=== PATIENT | female | born 1965 | race Caucasian/White ===

== ENCOUNTER 2019-08-24 13:58 | Observation (INO) | payer OTHER ==
[2019-08-24] MEDS ORDERED: SODIUM CHLORIDE 0.9% 500 ML 500 ML IV STA (14:47)
--- NOTE | 2019-08-24 14:50 | ED ---
Arrhythmia/Palpitations HPI - General Chief Complaint: Arrhythmia/Palpitations Stated Complaint: palpitations Source: patient Mode of arrival: wheelchair Limitations: no limitations - History of Present Illness Initial Comments: The patient is a 53-year-old female with minimal past medical history presents to emergency room with reported palpitations. The patient feels as if she is dehydrated. States she stayed up late last night and had 4 glasses of wine. She was up all night urinating and had poor sleep. Today she woke up this morning and was having chest palpitations. Denies any chest pain. No ripping or tearing sensation to her back. Denies associated shortness of breath. Denies history of DVT or PE. No pedal edema. No unilateral calf pain or swelling. Does report that she was on Tenormin in the past however has not taken it in several years. She has not seen a physician. She is concerned that her symptoms may be related to new onset menopause. She denies pleuritic chest pain. Denies any abdominal pain, nausea or vomiting. No fevers or chills. Denies cough or hemoptysis. There are no alleviating, precipitating or modifying factors - Related Data Home Medications Medication Instructions Recorded Confirmed Ibuprofen [Advil] 200 mg PO Q8HR PRN 08/24/19 08/24/19 Previous Rx's Medication Instructions Recorded Metoprolol Tartrate [Lopressor] 12.5 mg PO BID #60 tab 08/25/19 Allergies Allergy/AdvReac Type Severity Reaction Status Date / Time No Known Allergies Allergy Verified 08/24/19 14:55 Review of Systems ROS Statement: Those systems with pertinent positive or pertinent negative responses have been documented in the HPI. ROS Other: All systems not noted in ROS Statement are negative. Past Medical History History of Any Multi-Drug Resistant Organisms: None Reported Past Psychological History: No Psychological Hx Reported Smoking Status: Never smoker Past Alcohol Use History: Occasional Past Drug Use History: None Reported General Exam Limitations: no limitations General appearance: alert, in no apparent distress Head exam: Present: atraumatic, normocephalic, normal inspection Eye exam: Present: normal appearance, PERRL, EOMI. Absent: scleral icterus, conjunctival injection, periorbital swelling ENT exam: Present: normal exam, mucous membranes moist Neck exam: Present: normal inspection. Absent: tenderness, meningismus, lymphadenopathy Respiratory exam: Present: normal lung sounds bilaterally. Absent: respiratory distress, wheezes, rales, rhonchi, stridor Cardiovascular Exam: Present: normal rhythm, tachycardia, normal heart sounds. Absent: systolic murmur, diastolic murmur, rubs, gallop, clicks GI/Abdominal exam: Present: soft, normal bowel sounds. Absent: distended, tenderness, guarding, rebound, rigid Extremities exam: Present: normal inspection, full ROM, normal capillary refill. Absent: tenderness, pedal edema, joint swelling, calf tenderness Back exam: Present: normal inspection Neurological exam: Present: alert, oriented X3, CN II-XII intact Psychiatric exam: Present: normal affect, normal mood Skin exam: Present: warm, dry, intact, normal color. Absent: rash Course Vital Signs 08/24/19 08/24/19 08/24/19 14:01 14:21 16:06 Temperature 98.5 F Pulse Rate 96 106 H Pulse Rate [ 90 [employer] ] Respiratory 18 18 Rate Blood Pressure 167/73 149/54 O2 Sat by Pulse 99 96 Oximetry 08/24/19 17:15 Temperature 100.4 F H Pulse Rate 106 H Pulse Rate [ [employer] ] Respiratory 18 Rate Blood Pressure 142/51 O2 Sat by Pulse 98 Oximetry EKG Findings - EKG Comments: EKG Findings:: EKG at 1421 demonstrates a normal sinus rhythm with a ventricular rate of 96. HI interval 130. QRS 80. QTC 424. There are no acute ST segment elevations or depressions concerning for ischemic changes. EKG was performed at 1445 because of identifiable bigeminy on the monitor. Repeat EKG demonstrates a continued sinus rhythm with a ventricular rate of 85. HI interval 134. QRS 76. QTC 411. No acute ST segment elevations or depressions concerning for ischemic changes. No signs of [id number] or Brugada Medical Decision Making - Medical Decision Making Upon arrival the patient is placed into room 11. After history and physical exam was performed. During my physical exam I do note that the patient goes from a sinus rhythm into a bigeminy and trigeminy rhythm. I did recommend laboratory studies and a chest x-ray. Laboratory studies are essentially unremarkable. First troponin is negative. Chest x-ray demonstrates no acute findings. I did discuss the results the patient. She does sit up in bed and attempted to ambulate. Her heart rate does approach 115. As the patient has identifiable trigeminy and bigeminy and is symptomatic I did recommend admission to the hospital for cardio eval and echo. The patient agreed to this. I did call and discuss the case with Dr. Beltran who accepted admission for the patient. The patient was requesting something for increased heart rate. I did give her 1 mg of Ativan and propranolol 10 mg by mouth. The patient remained in stable condition was transported to the floor - Lab Data Result diagrams: 08/25/19 05:49 08/25/19 05:49 Lab Results 08/24/19 08/24/19 08/24/19 Range/Units 14:30 14:30 14:30 WBC 8.5 (3.8-10.6) k/uL RBC 5.08 (3.80-5.40) m/uL Hgb 15.1 (11.4-16.0) gm/dL Hct 44.7 (34.0-46.0) % MCV 88.0 (80.0-100.0) fL MCH 29.6 (25.0-35.0) pg MCHC 33.7 (31.0-37.0) g/dL RDW 12.9 (11.5-15.5) % Plt Count 181 (150-450) k/uL Neutrophils % 78 % Lymphocytes % 9 % Monocytes % 7 % Eosinophils % 3 % Basophils % 1 % Neutrophils # 6.6 (1.3-7.7) k/uL Lymphocytes # 0.8 L (1.0-4.8) k/uL Monocytes # 0.6 (0-1.0) k/uL Eosinophils # 0.3 (0-0.7) k/uL Basophils # 0.1 (0-0.2) k/uL PT 9.5 (9.0-12.0) sec INR 0.9 (<1.2) APTT 24.6 (22.0-30.0) sec Sodium 138 (137-145) mmol/L Potassium 4.1 (3.5-5.1) mmol/L Chloride 102 (98-107) mmol/L Carbon Dioxide 25 (22-30) mmol/L Anion Gap 11 mmol/L BUN 13 (7-17) mg/dL Creatinine 0.72 (0.52-1.04) mg/dL Est GFR (CKD-EPI)AfAm >90 (>60 ml/min/1.73 sqM) Est GFR (CKD-EPI)NonAf >90 (>60 ml/min/1.73 sqM) Glucose 130 H (74-99) mg/dL Calcium 10.3 H (8.4-10.2) mg/dL Magnesium 1.9 (1.6-2.3) mg/dL Total Bilirubin 0.4 (0.2-1.3) mg/dL AST 29 (14-36) U/L ALT 21 (9-52) U/L Alkaline Phosphatase 75 (38-126) U/L Troponin I (0.000-0.034) ng/mL Total Protein 7.3 (6.3-8.2) g/dL Albumin 4.6 (3.5-5.0) g/dL TSH 1.230 (0.465-4.680) mIU/L 08/24/19 Range/Units 14:30 WBC (3.8-10.6) k/uL RBC (3.80-5.40) m/uL Hgb (11.4-16.0) gm/dL Hct (34.0-46.0) % MCV (80.0-100.0) fL MCH (25.0-35.0) pg MCHC (31.0-37.0) g/dL RDW (11.5-15.5) % Plt Count (150-450) k/uL Neutrophils % % Lymphocytes % % Monocytes % % Eosinophils % % Basophils % % Neutrophils # (1.3-7.7) k/uL Lymphocytes # (1.0-4.8) k/uL Monocytes # (0-1.0) k/uL Eosinophils # (0-0.7) k/uL Basophils # (0-0.2) k/uL PT (9.0-12.0) sec INR (<1.2) APTT (22.0-30.0) sec Sodium (137-145) mmol/L Potassium (3.5-5.1) mmol/L Chloride (98-107) mmol/L Carbon Dioxide (22-30) mmol/L Anion Gap mmol/L BUN (7-17) mg/dL Creatinine (0.52-1.04) mg/dL Est GFR (CKD-EPI)AfAm (>60 ml/min/1.73 sqM) Est GFR (CKD-EPI)NonAf (>60 ml/min/1.73 sqM) Glucose (74-99) mg/dL Calcium (8.4-10.2) mg/dL Magnesium (1.6-2.3) mg/dL Total Bilirubin (0.2-1.3) mg/dL AST (14-36) U/L ALT (9-52) U/L Alkaline Phosphatase (38-126) U/L Troponin I <0.012 (0.000-0.034) ng/mL Total Protein (6.3-8.2) g/dL Albumin (3.5-5.0) g/dL TSH (0.465-4.680) mIU/L Disposition Clinical Impression: Palpitations Disposition: ADMITTED IP TO THIS [facility] Condition: Stable Is patient prescribed a controlled substance at d/c from ED?: No Decision to Admit Reason: Admit from EC Decision Date: 08/24/19 Decision Time: 17:20
[2019-08-24 15:06] LABS: Basophils # (A) 0.1 k/uL (0-0.2); Basophils % (A) 1 %; Eosinophils # (A) 0.3 k/uL (0-0.7); Eosinophils % (A) 3 %; HCT 44.7 % (34.0-46.0); HGB 15.1 gm/dL (11.4-16.0); Lymphocytes # (A) 0.8 k/uL (1.0-4.8); Lymphocytes % (A) 9 %; MCH 29.6 pg (25.0-35.0); MCHC 33.7 g/dL (31.0-37.0); Mean Platelet Volume 5.8; Monocytes # (A) 0.6 k/uL (0-1.0); Monocytes % (A) 7 %; Neutrophils # (A) 6.6 k/uL (1.3-7.7); Neutrophils % (A) 78 %; Platelet Count 181 k/uL (150-450); RBC 5.08 m/uL (3.80-5.40); RDW 12.9 % (11.5-15.5); WBC 8.5 k/uL (3.8-10.6)
[2019-08-24 15:14] LABS: INR 0.9 (<1.2); Partial Thromboplastin Time 24.6 sec (22.0-30.0); Prothrombin Time 9.5 sec (9.0-12.0)
[2019-08-24 15:16] LABS: ALT 21 U/L (9-52); AST 29 U/L (14-36); African American GFR (CKD) >90 (>60 ml/min/1.73 sqM); Albumin 4.6 g/dL (3.5-5.0); Alkaline Phosphatase 75 U/L (38-126); Anion Gap 11 mmol/L; Blood Urea Nitrogen 13 mg/dL (7-17); Calcium 10.3 mg/dL (8.4-10.2); Carbon Dioxide 25 mmol/L (22-30); Chloride 102 mmol/L (98-107); Glucose 130 mg/dL (74-99); Magnesium 1.9 mg/dL (1.6-2.3); Potassium 4.1 mmol/L (3.5-5.1); Sodium 138 mmol/L (137-145); Total Bilirubin 0.4 mg/dL (0.2-1.3); Total Protein 7.3 g/dL (6.3-8.2)
--- NOTE | 2019-08-24 15:35 | XR ---
EXAMINATION TYPE: XR chest 2V DATE OF EXAM: 08/24/2019 COMPARISON: 12/27/2011 HISTORY: Dysrhythmia TECHNIQUE: Frontal and lateral views of the chest are obtained. FINDINGS: Heart and mediastinum are normal. There are sternal wires. Lungs are clear. Diaphragm is n ormal. There are chest leads. Bony thorax appears intact. IMPRESSION: Normal chest. No change.
[2019-08-24] MEDS ORDERED: PROPRANOLOL 10 MG TAB PO STA (17:04)
[2019-08-24] MEDS ORDERED: LORazepam 2 MG/ML INJ IV STA (17:05)
[2019-08-24] MEDS ORDERED: NALOXONE 0.4 MG/ML 1 ML VIAL IV PRN (17:05)
[2019-08-24] MEDS: SODIUM CHLORIDE 0.9% 1,000 ML IV SCH ×2 (17:15→18:37)
[2019-08-24] MEDS ORDERED: ACETAMINOPHEN TAB 325 MG TAB PO PRN (17:22)
[2019-08-24 17:34] LABS: Appearance,Urine Clear (Clear); Bilirubin,Urine Negative (Negative); Blood,Urine Negative (Negative); Color,Urine Light Yellow; Glucose,Urine (UA) Negative (Negative); Ketones,Urine Negative (Negative); Leukocyte Esterase,Urine Negative (Negative); Nitrite,Urine Negative (Negative); Protein,Urine Negative (Negative); Specific Gravity,Urine 1.009 (1.001-1.035); Urobilinogen,Urine <2.0 mg/dL (<2.0)
--- NOTE | 2019-08-24 18:51 | P.HPIM ---
History of Present Illness H&P Date: 08/24/19 Chief Complaint: Palpitations 53-year-old female with no significant PMH besides cardiac surgery when she was 29 years old to repair a hole in her heart presents to the ED for palpitations. Patient states that she has been expressing palpitations and skipped heartbeats on and off since the age of 29. It was discovered that she had a hole in her heart which was surgically repaired at that time. Her family caseworker at that time prescribed a beta bety as needed. Since that time, patient did not have any complications or any palpitations and did not continue with her beta bety. Patient reports over the last few months experiencing palpitations that has been progressively getting worse. Palpitations can occur at anytime. Palpitations usually last for about 20 minutes and has woken her up from sleep in the past. Patient states that she is entering menopause and thinks that this could be the cause. Last night, she had 4 glasses of wine and woke up around 3 AM with palpitations, prompting her to come to the ED. Patient reports drinking coffee but not excessively. She denies any headaches, lower extremity edema, nausea or vomiting, fever or chills, cough, chest pain, shortness of breath, changes in urination or bowel habits and no changes in appetite or weight. No dizziness, numbness/weakness/tingling of the extremities. In the ED, her vital signs relatively stable except for heart rate as high as 106. CBC was unremarkable. Coagulation panel was negative. CMP showed glucose of 1:30 and calcium of 10.3. Chest x-ray showed no acute findings. Troponin was less than 0.012, EKG showing normal sinus rhythm. TSH was 1.23. Urinalysis was negative. Magnesium was 1.9. According to the ED, patient was noted to have bigeminy and trigeminy on telemetry and wide fluctuations of her pulse when ambulating. She is admitted to rule out acute coronary syndrome and for palpitations with cardiology on consult. Review of Systems Pertinent positives and negatives as discussed in HPI, a complete review of systems was performed and all other systems are negative. Past Medical History History of Any Multi-Drug Resistant Organisms: None Reported Past Psychological History: No Psychological Hx Reported Smoking Status: Never smoker Past Alcohol Use History: Occasional Past Drug Use History: None Reported Medications and Allergies Home Medications Medication Instructions Recorded Confirmed Type Ibuprofen [Advil] 200 mg PO Q8HR PRN 08/24/19 08/24/19 History Allergies Allergy/AdvReac Type Severity Reaction Status Date / Time No Known Allergies Allergy Verified 08/24/19 14:55 Physical Exam Vitals: Vital Signs Temp Pulse Pulse Resp BP Pulse Ox 08/24/19 17:15 100.4 F H 106 H 18 142/51 98 08/24/19 16:06 106 H 18 149/54 96 08/24/19 14:21 90 08/24/19 14:01 98.5 F 96 18 167/73 99 Intake and Output 08/24/19 08/24/19 08/24/19 06:59 14:59 22:59 Intake Total 75 Balance 75 Intake: Intake, IV Titration 75 Amount Sodium Chloride 0.9% 1, 75 000 ml @ 75 mls/hr IV . [id number] [facility] Rx#:[id number] Other: Weight 59.874 kg General: [non toxic], [no distress], [appears at stated age] Derm: [warm], [dry] Head: [atraumatic], [normocephalic], [symmetric] Eyes: [EOMI], [no lid lag], [anicteric sclera] Mouth: [no lip lesion], [mucus membranes moist] Cardiovascular: [S1S2 reg], [tachycardia], [positive posterior tibial pulse bilateral] Lungs: [CTA bilateral], [no rhonchi, no rales] , [no accessory muscle use] Abdominal: [soft], [ nontender to palpation], [no guarding], [no appreciable organomegaly] Ext: [no gross muscle atrophy], [no edema], [no contractures] Neuro: [ CN II-XI grossly intact], [no focal neuro deficits] Psych: [Alert], [oriented], [appropriate affect] Results CBC & Chem 7: 08/24/19 14:30 08/24/19 14:30 Labs: Abnormal Lab Results - Last 24 Hours (Table) 08/24/19 08/24/19 Range/Units 14:30 14:30 Lymphocytes # 0.8 L (1.0-4.8) k/uL Glucose 130 H (74-99) mg/dL Calcium 10.3 H (8.4-10.2) mg/dL Assessment and Plan Assessment: Assessment and Plan Palpitations Hyperglycemia Troponins less than 0.012 with EKG showing normal sinus rhythm. Telemetry strips showing bigeminy and trigeminy with fluctuating heart rate as high as 120 with ambulation. Plans: Trend troponin/EKG to rule out ACS. Follow-up echocardiogram. Telemetry monitoring. Follow Cardiology consultation. POC glucose of 130. Plans: Will continue to monitor. DVT prophylaxis: [SCD boots] Discussed with: [Patient] Anticipated discharge: [1-2 days] Anticipated discharge place: [Home] A total of [35] minutes was spent on the care of this complex patient more than 50% of the time was spent in counseling and care coordination. Patient names her Rey decision-maker indicates that she can't make d ecisions for herself. Patient reiterates wanting to remain full code at this time.
[2019-08-25 03:02] VITALS: TEMP 98.7
[2019-08-25 06:28] LABS: African American GFR (CKD) >90 (>60 ml/min/1.73 sqM); Anion Gap 8 mmol/L; Blood Urea Nitrogen 12 mg/dL (7-17); Calcium 9.6 mg/dL (8.4-10.2); Carbon Dioxide 26 mmol/L (22-30); Chloride 107 mmol/L (98-107); Glucose 105 mg/dL (74-99); Potassium 4.1 mmol/L (3.5-5.1); Sodium 141 mmol/L (137-145)
[2019-08-25 06:29] LABS: Basophils # (A) 0.1 k/uL (0-0.2); Basophils % (A) 1 %; Eosinophils # (A) 0.3 k/uL (0-0.7); Eosinophils % (A) 4 %; HCT 44.5 % (34.0-46.0); HGB 14.4 gm/dL (11.4-16.0); Lymphocytes # (A) 1.1 k/uL (1.0-4.8); Lymphocytes % (A) 14 %; MCH 29.5 pg (25.0-35.0); MCHC 32.3 g/dL (31.0-37.0); MCV 91.4 fL (80.0-100.0); Mean Platelet Volume 5.7; Monocytes # (A) 0.6 k/uL (0-1.0); Monocytes % (A) 7 %; Neutrophils # (A) 5.6 k/uL (1.3-7.7); Neutrophils % (A) 72 %; Platelet Count 172 k/uL (150-450); RBC 4.87 m/uL (3.80-5.40); RDW 13.1 % (11.5-15.5); WBC 7.8 k/uL (3.8-10.6)
[2019-08-25 07:41] VITALS: BP 174/76; PULSE 86; RESP 17
[2019-08-25] MEDS ORDERED: METOPROLOL TARTRATE 12.5 MG TAB PO SCH (09:00)
--- NOTE | 2019-08-25 11:32 | P.DS ---
Providers Date of admission: 08/24/19 17:09 Expected date of discharge: 08/25/19 Attending physician: Felicita Clements MD Consults: 08/24/19 17:06 Consult Physician Urgent Consulting Provider: [facility] Consult Reason/Comments: acute palpitations Do you want consulting provider notified?: Yes Primary care physician: Stated None Hospital Course: 53-year-old female with no significant PMH besides cardiac surgery when she was 29 years old to repair a hole in her heart presents to the ED for palpitations. Patient states that she has been expressing palpitations and skipped heartbeats on and off since the age of 29. It was discovered that she had a hole in her heart which was surgically repaired at that time. Her conference coordinator at that time prescribed a beta bety as needed. Since that time, patient did not have any complications or any palpitations and did not continue with her beta bety. Patient reports over the last few months experiencing palpitations that has been progressively getting worse. Palpitations can occur at anytime. Palpitations usually last for about 20 minutes and has woken her up from sleep in the past. Patient states that she is entering menopause and thinks that this could be the cause. Last night, she had 4 glasses of wine and woke up around 3 AM with palpitations, prompting her to come to the ED. Patient reports drinking coffee but not excessively. She denies any headaches, lower extremity edema, nausea or vomiting, fever or chills, cough, chest pain, shortness of breath, changes in urination or bowel habits and no changes in appetite or weight. No dizziness, numbness/weakness/tingling of the extremities. In the ED, her vital signs relatively stable except for heart rate as high as 106. CBC was unremarkable. Coagulation panel was negative. CMP showed glucose of 1:30 and calcium of 10.3. Chest x-ray showed no acute findings. Troponin was less than 0.012, EKG showing normal sinus rhythm. TSH was 1.23. Urinalysis was negative. Magnesium was 1.9. According to the ED, patient was noted to have bigeminy and trigeminy on telemetry and wide fluctuations of her pulse when ambulating. She is admitted to rule out acute coronary syndrome and for palpitations with cardiology on consult. Cardiology was consulted and patient was started on metoprolol to 12.5 mg by mouth twice a day. Cardiology had recommended that echocardiogram being done in the outpatient setting. Patient was cleared for discharge from cardiology standpoint. Patient was seen and examined. No acute events overnight. He denies any chest pain, shortness breath or palpitations. No nausea or vomiting. No fever or chills. General: [non toxic], [no distress], [appears at stated age] Derm: [warm], [dry] Head: [atraumatic], [normocephalic], [symmetric] Eyes: [EOMI], [no lid lag], [anicteric sclera] Mouth: [no lip lesion], [mucus membranes moist] Cardiovascular: [S1S2 reg], [no murmur], [positive DP pulse bilateral] Lungs: [CTA bilateral], [no rhonchi, no rales] , [no accessory muscle use] Abdominal: [soft], [ nontender to palpation], [no guarding], [no appreciable organomegaly] Ext: [no gross muscle atrophy], [no edema], [no contractures] Neuro: [no focal neuro deficits] Psych: [Alert], [oriented], [appropriate affect] Assessment and Plan Palpitations Hyperglycemia Troponins less than 0.012 3 with EKG showing normal sinus rhythm, ACS ruled out. Telemetry strips showing bigeminy and trigeminy with fluctuating heart rate as high as 120 with ambulation. Plans: Follow-up echocardiogram. Telemetry monitoring. Follow Cardiology consultation. POC glucose of 105. Plans: Will continue to monitor. [DC home today on metoprolol. Follow cardiology clinic for echocardiogram. PCP in 1-2 days.] Health Concerns: Chest x-ray Patient Condition at Discharge: Stable Plan - Discharge Summary New Discharge Prescriptions: New Metoprolol Tartrate [Lopressor] 12.5 mg PO BID #60 tab Continue Ibuprofen [Advil] 200 mg PO Q8HR PRN PRN Reason: Pain Discharge Medication List Ibuprofen [Advil] 200 mg PO Q8HR PRN 08/24/19 [History] Metoprolol Tartrate [Lopressor] 12.5 mg PO BID #60 tab 08/25/19 [Rx] Follow up Appointment(s)/Referral(s): None,Stated [Primary Care Provider] - 1-2 days Carlos Soto MD [STAFF PHYSICIAN] - 1 Week Activity/Diet/Wound Care/Special Instructions: Diet: Regular Follow up with PCP within 1-2 days of discharge. Follow-up with cardiology within 1 week of discharge. Please obtain echocardiogram with your conference coordinator. Discharge Disposition: HOME SELF-CARE
--- NOTE | 2019-08-25 13:43 | CONS ---
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 Elias. It is unclear as to what the pathology was. The patient apparently was seen by me and then sent over to [facility] at [facility] at that time. I will verify the details if possible. However, the patient came in with episodes of frequent increase in palpitations that have been occurring. She apparently stayed up a little late last night and had 3 or 4 glasses of wine and then started urinating and did not sleep well, woke up with chest palpitations and came into the hospital. After arrival, she was in a sinus rhythm. She has no chest discomfort. She is actually feeling well. Her palpitations have resolved. She has noticed that for the last 6-8 months since she is having menopausal symptoms, palpitations have also come along. She is not a smoker. She does consume alcohol occasionally. She does not use any recreational drugs. At the time of my evaluation, she is asymptomatic. I reviewed the rhythm strips. She has rare isolated PVCs and occasional bigeminy but no related symptoms with this ectopy. She is asymptomatic at the time of my evaluation. ALLERGIES: None. MEDICATIONS: Include ibuprofen p.r.n. EXAMINATION: Blood pressure is 140/78, pulse rate is about an 88 per minute, regular. HEENT unremarkable. Fundus was not examined by me. Neck is supple. No JVD. I do not hear a carotid bruit. There is no thyromegaly. Heart exam reveals S1, S2 heard normally. No rub, murmur or gallop. Lungs are clear. Abdomen is soft, nontender. Lower extremities reveal normal pulses. No edema. Central nervous system is normal. EKG revealed sinus rhythm about 88 beats per minute. No acute changes. IMPRESSION: 1. Palpitations. 2. Isolated premature ventricular contractions, not necessarily symptomatic. 3. History of congenital heart surgery, details unavailable. RECOMMENDATIONS: I am recommending that we will start her on metoprolol tartrate 12.5 mg b.i.d. She used to take atenolol in the past but she stopped taking it more than 10 years ago. I am recommending that we will start her on metoprolol tartrate 12.5 mg b.i.d. and I will see her in the office and we will perform an event monitor and echocardiogram and if necessary a stress test. In the interim I have advised her to refrain from alcohol intake or any stimulants like caffeine, alcohol and tobacco. I will call and make an appointment and patient also we will call my office as well. We will increase activity and see how she does prior to discharge. I discussed my thoughts in detail with the patient. Thank you very much for the consult. XIOMY / MICHEAL: [id number] /
== END 2019-08-25 11:52 | disposition home or self-care (01) ==
LOC: EC 13:58 → 3SCARD 17:09
PROVIDERS: ADMIT Family Medicine; ATTEND Family Medicine
DX: R00.2 Palpitations (principal); R00.8 Other abnormalities of heart beat; R00.0 Tachycardia, unspecified; R73.9 Hyperglycemia, unspecified; N95.1 Menopausal and female climacteric states; Z87.74 Personal history of (corrected) congenital malformations of heart and circulatory system; I49.3 Ventricular premature depolarization
CPT/HCPCS: 96374; 99285; 36415; 93005; 80053; 80048; 83735; 84443; 84484 ×2; 85025 ×2; 85610; 85730; 81003; 71046; G0378 ×2; J2060